=== PATIENT | female | born 1970 | race Caucasian/White ===

== ENCOUNTER 2018-01-25 07:06 | Emergency (ER) | payer OTHER ==
[2018-01-25] MEDS ORDERED: Sodium Chloride 0.9% 1,000 ML IV STA (07:52)
[2018-01-25] MEDS ORDERED: Sodium Chloride 0.9% 5 ML Syringe FLUSH PRN (07:52)
[2018-01-25] MEDS ORDERED: HYDROmorphone 1 MG/ML Syringe IVPUSH ONE (07:54)
[2018-01-25] MEDS ORDERED: Iopamidol 612 MG/ML 75 ML Bottle IV ONE (08:08)
[2018-01-25] MEDS ORDERED: Sodium Chloride 0.9% 50 ML IV SCH (08:15)
[2018-01-25 08:25] LABS: CHLORIDE,CL 105 mmol/L (98-115); SODIUM,NA 141 mmol/L (136-145)
--- NOTE | 2018-01-25 08:48 | EDM.PDOC ---
ED HPI GENERAL MEDICAL PROBLEM - General Chief Complaint: Abdominal Pain Stated Complaint: abdominal pain Time Seen by Provider: 01/25/18 07:52 Source of Information: Reports: Patient History Limitations: Reports: No Limitations - History of Present Illness INITIAL COMMENTS - FREE TEXT/NARRATIVE: PATIENT IS A 47-YEAR-OLD FEMALE WHO PRESENTS TO THE EMERGENCY DEPARTMENT THIS MORNING WITH A COMPLAINT OF ABDOMINAL PAIN. PATIENT WAS SEEN AT [facility] YESTERDAY BUT COMPLETE RECORDS ARE NOT AVAILABLE. PATIENT WAS ADVISED THAT TIME IF PAIN CONTINUES TO PRESENT TO THE EMERGENCY DEPARTMENT. PATIENT DESCRIBES PAIN ACHING AND CRAMPING INITIALLY RIGHT LOWER QUADRANT AND NOW DIFFUSELY. PATIENT HAS NO HISTORY OF ABDOMINAL SURGERY. PATIENT DENIES CHEST PAIN, SHORTNESS OF BREATH, NAUSEA, VOMITING, DIARRHEA, DYSURIA, VAGINAL BLEEDING , FEVER, OUT OF COUNTRY TRAVEL, OR FAMILY MEMBERS WITH SIMILAR SYMPTOMS. Onset: Gradual Onset Date: 01/23/18 Duration: Getting Worse Location: Reports: Abdomen Quality: Reports: Ache Severity: Moderate Improves with: Reports: None Worsens with: Reports: None Context: Denies: Trauma Associated Symptoms: Reports: No Other Symptoms Abdominal Pain Score (Numeric/FACES): 5 - Related Data Allergies Allergy/AdvReac Type Severity Reaction Status Date / Time sulfamethoxazole Allergy Hives Verified 01/25/18 07:11 [From ] trimethoprim [From ] Allergy Hives Verified 01/25/18 07:11 Home Meds: Home Meds Nitrofurantoin Macrocrystal [Macrodantin] 100 mg PO BID 01/25/18 [History] ED ROS GENERAL - Review of Systems Review Of Systems: ROS reveals no pertinent complaints other than HPI. Constitutional: Reports: No Symptoms HEENT: Reports: No Symptoms Respiratory: Reports: No Symptoms Cardiovascular: Reports: No Symptoms Endocrine: Reports: No Symptoms GI/Abdominal: Reports: Abdominal Pain. Denies: Black Stool, Bloody Stool, Constipation, Diarrhea, Mucous in Stool, Nausea, Vomiting : Reports: No Symptoms Musculoskeletal: Reports: No Symptoms Skin: Reports: No Symptoms Neurological: Reports: No Symptoms Psychiatric: Reports: No Symptoms Hematologic/Lymphatic: Reports: No Symptoms Immunologic: Reports: No Symptoms ED EXAM, GI/ABD - Physical Exam Exam: See Below Exam Limited By: No Limitations General Appearance: Alert, WD/WN, Mild Distress Throat/Mouth: Normal Inspection, Normal Oropharynx, No Airway Compromise Head: Atraumatic, Normocephalic Neck: Normal Inspection, Supple Respiratory/Chest: No Respiratory Distress, Lungs Clear, Normal Breath Sounds, No Accessory Muscle Use, Chest Non-Tender Cardiovascular: Regular Rate, Rhythm, No Murmur GI/Abdominal Exam: Normal Bowel Sounds, Soft, No Organomegaly, No Distention, No Abnormal Bruit, No Mass, Rebound, Tender (DIFFUSELY, WORSE RIGHT LOWER QUADRANT). No: Non-Tender, Distended, Guarding, Rigid Back Exam: Normal Inspection. No: CVA Tenderness (L), CVA Tenderness (R) Extremities: Normal Inspection, No Pedal Edema Neurological: Alert, Oriented, Normal Cognition Psychiatric: Normal Affect, Normal Mood Skin Exam: Warm, Dry, Intact, Normal Color, No Rash Lymphatic: No Adenopathy Course - Vital Signs Last Recorded V/S: Last Vital Signs Temp 98.2 F 01/25/18 07:07 Pulse 107 H 01/25/18 07:07 Resp 16 01/25/18 07:07 BP 120/66 01/25/18 07:07 Pulse Ox 92 L 01/25/18 07:07 - Orders/Labs/Meds Orders: Active Orders 24 hr Category Date Time Status Peripheral IV Care [RC] . DIRECTED Care 01/25/18 07:54 Ordered Abdomen Pelvis w Cont [CT] Stat Exams 01/25/18 07:52 Ordered CBC WITH AUTO DIFF [HEME] Stat Lab 01/25/18 07:52 Ordered MANUAL DIFFERENTIAL QA/NC [HEME] Stat Lab 01/25/18 07:55 Results UA W/MICROSCOPIC [URIN] Stat Lab 01/25/18 07:52 Ordered Sodium Chloride 0.9% [Normal Saline] 1,000 ml Med 01/25/18 07:52 Ordered IV .BOLUS Sodium Chloride 0.9% [Normal Saline] 50 ml Med 01/25/18 08:15 Active IV ASDIRECTED Sodium Chloride 0.9% [Syrex Flush] Med 01/25/18 07:52 Ordered 5 ml FLUSH Q8HR PRN Peripheral IV Insertion Adult [OM.PC] Stat Oth 01/25/18 07:52 Ordered Medication Orders Sodium Chloride (Normal Saline) 1,000 mls @ 1,000 mls/hr IV .BOLUS STA Stop: 01/25/18 08:51 Last Admin: 05/09/18 08:03 Dose: 1,000 mls/hr Sodium Chloride (Normal Saline) 50 mls @ 200 mls/hr IV ASDIRECTED EDUARDO Sodium Chloride (Syrex Flush) 5 ml FLUSH Q8HR PRN PRN Reason: Keep Vein Open Labs: Laboratory Tests 01/25/18 01/25/18 Range/Units 07:55 07:55 WBC 13.7 H (5.0-10.0) 10^3/uL RBC 4.41 (3.80-5.50) 10^6/uL Hgb 14.3 (12.0-16.0) g/dL Hct 41.7 (37.0-47.0) % MCV 94.4 H (82.0-92.0) fL MCH 32.4 H (27.0-31.0) pg MCHC 34.4 (32.0-36.0) g/dL RDW 12.0 (11.5-14.5) % Plt Count 196 (150-300) 10^3/uL MPV 8.2 (7.4-10.4) fL Add Manual Diff Yes Sodium 141 (136-145) mmol/L Potassium 3.8 (3.3-5.3) mmol/L Chloride 105 (98-115) mmol/L Carbon Dioxide 21.8 (21.0-32.0) mmol/L BUN 9 (6-25) mg/dL Creatinine 0.58 (0.51-1.17) mg/dL Est Cr Clr Drug Dosing 113.46 mL/min Estimated GFR (MDRD) > 60 mL/min Glucose 129 H (70-110) mg/dL Calcium 9.1 (8.7-10.3) mg/dL Total Bilirubin 1.0 (0.2-1.0) mg/dL AST 14 L (15-37) U/L ALT 29 (12-78) U/L Alkaline Phosphatase 66 (46-116) IU/L Total Protein 7.4 (6.4-8.2) g/dL Albumin 3.59 (3.00-4.80) g/dL Lipase 67 L (73-393) U/L HCG, Qual Negative (NEGATIVE) Meds: Medications Generic Name Dose Route Start Last Admin Trade Name Freq PRN Reason Stop Dose Admin Sodium Chloride 1,000 mls @ 1,000 mls/hr 01/25/18 07:52 01/25/18 08:03 Normal Saline IV 01/25/18 08:51 1,000 mls/hr .BOLUS STA Administration Sodium Chloride 50 mls @ 200 mls/hr 01/25/18 08:15 Normal Saline IV ASDIRECTED EDUARDO Sodium Chloride 5 ml 01/25/18 07:52 Syrex Flush FLUSH Q8HR PRN Keep Vein Open Discontinued Medications Generic Name Dose Route Start Last Admin Trade Name Doyle PRN Reason Stop Dose Admin Hydromorphone HCl 0.5 mg 01/25/18 07:54 01/25/18 08:03 Dilaudid IVPUSH 01/25/18 07:55 0.5 mg ONETIME ONE Administration Iopamidol 75 ml 01/25/18 08:08 Isovue-300 (61%) IV 01/25/18 08:09 ONETIME ONE - Radiology Interpretation Free Text/Narrative:: CT ABDOMEN AND PELVIS SHOWED ACUTE APPENDICITIS WITH NO ABSCESS OR SIGNIFICANT FREE AIR - Re-Assessments/Exams Free Text/Narrative Re-Assessment/Exam: 01/25/18 09:21 PATIENT AFEBRILE, NONTOXIC APPEARING, VITAL SIGNS STABLE, PAIN CONTROLLED. PATIENT STATED HER LAST MEAL WAS AT 1800 YESTERDAY. PATIENT GIVEN 3.375 MG ZOSYN IV. CASE DISCUSSED WITH [facility]EL[facility]. SURGERY AT [facility] AND PATIENT WILL BE TRANSFERRED THERE VIA EMS FOR DIRECT ADMIT TO HIS SERVICE. 01/25/18 09:24 Departure - Departure Time of Disposition: 09:22 Disposition: DC/Tfer to Acute Hospital 02 Condition: Fair Clinical Impression: Appendicitis Qualifiers: Appendicitis type: acute appendicitis Acute appendicitis type: unspecified acute appendicitis type Qualified Code(s): K35.80 - Unspecified acute appendicitis - Discharge Information Referrals: Rickie North, [employer] [Primary Care Provider] - - My Orders Last 24 Hours: My Active Orders 01/25/18 07:52 Abdomen Pelvis w Cont [CT] Stat CBC WITH AUTO DIFF [HEME] Stat UA W/MICROSCOPIC [URIN] Stat Sodium Chloride 0.9% [Normal Saline] 1,000 ml IV .BOLUS Sodium Chloride 0.9% [Syrex Flush] 5 ml FLUSH Q8HR PRN Peripheral IV Insertion Adult [OM.PC] Stat 01/25/18 07:54 Peripheral IV Care [RC] . DIRECTED 01/25/18 07:55 MANUAL DIFFERENTIAL QA/NC [HEME] Stat 01/25/18 08:15 Sodium Chloride 0.9% [Normal Saline] 50 ml IV ASDIRECTED - Assessment/Plan Last 24 Hours: My Active Orders 01/25/18 07:52 Abdomen Pelvis w Cont [CT] Stat CBC WITH AUTO DIFF [HEME] Stat UA W/MICROSCOPIC [URIN] Stat Sodium Chloride 0.9% [Normal Saline] 1,000 ml IV .BOLUS Sodium Chloride 0.9% [Syrex Flush] 5 ml FLUSH Q8HR PRN Peripheral IV Insertion Adult [OM.PC] Stat 01/25/18 07:54 Peripheral IV Care [RC] . DIRECTED 01/25/18 07:55 MANUAL DIFFERENTIAL QA/NC [HEME] Stat 01/25/18 08:15 Sodium Chloride 0.9% [Normal Saline] 50 ml IV ASDIRECTED Assessment:: ACUTE APPENDICITIS Plan: TRANSFERRED TO [facility]
[2018-01-25] MEDS ORDERED: Piperacillin/Tazobactam 3.375 GM in Sodium Chloride 0.9% 100 ML IV STA (09:17)
[2018-01-25] MEDS ORDERED: Sodium Chloride 0.9% 1,000 ML ONE (09:21)
[2018-01-25] MEDS ORDERED: Piperacillin/Tazobactam/Dext 3.375 GM in Premix Bag 1 BAG IV ONE (09:27)
[2018-01-25] MEDS ORDERED: Sodium Chloride 0.9% 1,000 ML IV SCH (09:30)
== END 2018-01-25 10:25 ==
LOC: KA.ED 07:06
DX: K35.80 Unspecified acute appendicitis (principal); Z88.2 Allergy status to sulfonamides; Z88.8 Allergy status to other drugs, medicaments and biological substances
CPT/HCPCS: 74177; 80053; 83690; 84703; 85025; 96361; 96365; 96375; 99285; J1170; J2543; J7030; J7050; Q9967

== ENCOUNTER 2025-05-23 14:10 | Emergency (ER) | payer BC ==
[2025-05-23] MEDS ORDERED: Sodium Chloride 0.9% 10 ML Syringe FLUSH PRN (14:16)
[2025-05-23 14:27] LABS: BASOPHILS ABSOLUTE AUTO 0.02 10^3/uL (0.00-0.10); BASOPHILS PERCENT AUTO 0.3 % (0.0-1.0); EOSINOPHILS ABSOLUTE AUTO 0.07 10^3/uL (0.10-0.30); EOSINOPHILS PERCENT AUTO 0.9 % (1.0-3.0); IMMATURE GRAN ABSOLUTE AUTO 0.01 10^3/uL (0.00-0.04); IMMATURE GRAN PERCENT AUTO 0.1 % (0.0-0.4); LYMPHOCYTES ABSOLUTE AUTO 1.95 10^3/uL (1.00-4.00); LYMPHOCYTES PERCENT AUTO 26.5 % (20.0-40.0); MEAN PLATELET VOLUME 10.1 fL (7.4-10.4); MONOCYTES ABSOLUTE AUTO 0.72 10^3/uL (0.10-0.80); MONOCYTES PERCENT AUTO 9.8 % (2.0-8.0); NEUTROPHILS ABSOLUTE AUTO 4.60 10^3/uL (2.50-7.00); NEUTROPHILS PERCENT AUTO 62.4 % (50.0-70.0); PLATELET COUNT,PLT 239 10^3/uL (150-400); RED BLOOD CELL COUNT 4.90 10^6/uL (3.80-5.50); RED CELL DISTRIBUTION WIDTH 11.7 % (11.5-14.5); WHITE BLOOD CELL COUNT,WBC 7.37 10^3/uL (5.00-10.00)
[2025-05-23 14:47] LABS: ALANINE AMINOTRANSFERASE,ALT 33 U/L (14-63); ASPARTATE AMNIOTRANSFERASE,AST 26 U/L (15-37); BILIRUBIN TOTAL 0.5 mg/dL (0.2-1.0); BLOOD UREA NITROGEN,BUN 18 mg/dL (7-18); CARBON DIOXIDE,CO2 28.9 mmol/L (21.0-32.0); CHLORIDE,CL 103 mmol/L (98-107); CREATININE 0.83 mg/dL (0.51-1.17); EST CRCL DRUG DOSING (CG) 76.23 mL/min; GLUCOSE RANDOM 118 mg/dL (70-140); POTASSIUM,K 3.7 mmol/L (3.5-5.1); PROTEIN TOTAL,TP 7.5 g/dL (6.4-8.2); SODIUM,NA 142 mmol/L (136-145)
[2025-05-23 14:48] LABS: ESTIMATED GFR 84 mL/min (>=60)
[2025-05-23 14:57] LABS: B-TYPE NATRIURETIC PEPTIDE,BNP 5 pg/mL (0-100)
== END 2025-05-23 16:05 | disposition home or self-care (01) ==
LOC: KA.ED 14:13
DX: R07.89 Other chest pain (principal); I10 Essential (primary) hypertension; Z88.2 Allergy status to sulfonamides
CPT/HCPCS: 71045; 80053; 83880; 84484; 85025; 85379; 86140; 99285